=== PATIENT | female | born 1970 | race Two or more races ===

== ENCOUNTER 2023-12-17 04:46 | Day surgery (SDC) | payer BC, OTHER ==
[2023-12-17 13:13] VITALS: TEMP 97.7
[2023-12-17 13:15] VITALS: RESP 18
[2023-12-17 13:16] VITALS: BP 108/45; PULSE 59
== END 2023-12-17 11:15 | disposition home or self-care (01) ==
LOC: JASU-ENDO 04:46
PROVIDERS: ATTEND Internal Medicine Gastroenterology
PROC: 0DJD8ZZ Inspection of Lower Intestinal Tract, Via Natural or Artificial Opening Endoscopic (ICD-10-PCS; principal; 2023-12-17 10:00)
DX: Z12.11 Encounter for screening for malignant neoplasm of colon (principal); K64.8 Other hemorrhoids; I10 Essential (primary) hypertension
CPT/HCPCS: 82962